=== PATIENT | male | born 1970 ===

== ENCOUNTER 2018-02-05 10:09 | Emergency (ER) | payer SELFPAY ==
[2018-02-05 10:17] VITALS: O2SAT 100
[2018-02-05] MEDS ORDERED: Sodium Chloride 0.9% 1,000 ML IV STA (11:01)
[2018-02-05 11:47] LABS: VENOUS BLOOD GAS BASE EXCESS 0.5 mmol/L (0.0-2.0); VENOUS BLOOD GAS PCO2 47 mmHg (40-60); VENOUS BLOOD GAS PO2 18 mm/Hg (30-55); VENOUS BLOOD PH 7.36 (7.32-7.43)
--- NOTE | 2018-02-05 12:10 | ED PDOC ---
HPI: General Adult History Per: Patient Additional Complaint(s): Pt. states since 01/23/2018 he developed fever, lower back pain, and R sided neck swelling. Reports fever is intermittent and resolves after taking Aleve. Further states lower back pain has improved and is now "95% resolved." R sided neck swelling became worsen. Reports no sore throat. Denies trauma, dysuria, incontinence, abd pain, IVDA, cough, congestion, hematuria, previous back problems, rash, sick contacts, recent travel, radiation of pain, numbness, tingling. Of note, back pain was only present with movement and not to touch. <Daniel Ralph E - Last Filed: 02/05/18 19:22> <Sriram Zayas Y - Last Filed: 02/08/18 08:48> Time Seen by Provider: 02/05/18 10:45 Chief Complaint (Nursing): ENT Problem Supervising Attending Note - Supervising Attending Note The Documented history was done by the: Physician Cable Weaver The documented physical exam was done by the: Physician Cable Weaver The documented procedures were done by the: Physician Cable Weaver - Attestation: I have personally seen and examined this patient.: Yes I have fully participated in the care of the patient.: Yes I have reviewed all pertinent clinical information, including history, physical exam and plan: Yes - Notes: Notes:: Pt seen by myself / pt wiht R sided swelling. no pain. normal wbc. CT shows lymph nodes, concerning for lymphoma ivc abx ordered on exam pt has no pain, trouble swelling or sob. airway intact. no labored breathing. speaking comfortably. discussed results with patient spoke with Dr Mejia ENT environmental systems coordinator who agrees with iv abx and recommends going to see Dr Mejia tomorrow at noon. info given to pt. discussed with brittaney santizo <Sriram Zayas Y - Last Filed: 02/08/18 08:48> Past Medical History Reviewed: Historical Data, Nursing Documentation, Vital Signs Vital Signs: Last Vital Signs Temp 101.5 F H 02/05/18 10:16 Pulse 115 H 02/05/18 10:16 Resp 20 02/05/18 10:16 BP 118/79 02/05/18 10:16 Pulse Ox 100 02/05/18 10:16 - Medical History PMH: Denies: Chronic Kidney Disease - Surgical History Surgical History: No Surg Hx - Family History Family History: States: No Known Family Hx - Social History Alcohol: Social Drugs: Cannabis, Other (denies IVDA) <Daniel Ralph E - Last Filed: 02/05/18 19:22> Vital Signs: Last Vital Signs Temp 99.4 F 02/05/18 22:10 Pulse 80 02/05/18 22:10 Resp 18 02/05/18 22:10 BP 126/72 02/05/18 22:10 Pulse Ox 100 02/05/18 22:10 <Sriram Zayas Y - Last Filed: 02/08/18 08:48> - Home Medications Home Medications: Ambulatory Orders Medication Instructions Recorded RX: Clindamycin [Cleocin] 300 mg PO TID #21 cap 02/05/18 - Allergies Allergies/Adverse Reactions: Allergies Allergy/AdvReac Type Severity Reaction Status Date / Time shellfish derived Allergy RASH Verified 02/05/18 16:20 Review of Systems ROS Statement: Except As Marked, All Systems Reviewed And Found Negative Constitutional: Positive for: Fever Musculoskeletal: Positive for: Back Pain <Daniel Ralph E - Last Filed: 02/05/18 19:22> Physical Exam - Physical Exam Appears: Positive for: Well, Non-toxic, No Acute Distress Skin: Positive for: Normal Color, Warm. Negative for: Rash Eye Exam: Positive for: Normal appearance ENT: Positive for: TM Is/Are (non-erythematous, non-bulging b/l), Tonsillar Exudate (Small tonsillar exudate on R vs tonsilith), Tonsillar Swelling (R sided tonsillar swelling), Other (no trismus, able to swallow saliva) Neck: Positive for: Normal, Painless ROM, Supple. Negative for: Pain On Movement Of Neck Cardiovascular/Chest: Positive for: Regular Rate, Rhythm Respiratory: Positive for: Normal Breath Sounds. Negative for: Stridor, Respiratory Distress Gastrointestinal/Abdominal: Positive for: Normal Exam, Bowel Sounds, Soft. Negative for: Tenderness, Organomegaly Back: Positive for: Normal Inspection. Negative for: L CVA Tenderness, R CVA Tenderness, Vertebral Tenderness, Decreased ROM, Muscle Spasm Neurologic/Psych: Positive for: Alert, Oriented (x3) <Daniel Ralph E - Last Filed: 02/05/18 19:22> - Laboratory Results Result Diagrams: 02/05/18 11:50 02/05/18 11:50 - ECG O2 Sat by Pulse Oximetry: 100 - Progress ED Course And Treament: Labs, Tylenol 975mg PO, IV NS bolus x 1 ordered. Pt. evaluated by Dr. Zayas who agrees with plan and recommends CT soft tissue neck. CT soft tissue neck w/ IV contrast ordered. 1515 CT soft tissue neck: There are 3 large contiguous masses located in the right parotid gland. These are best demonstrated on sagittal image 33 series 602. These lesions measure 12, 15 and 21 mm in diameter. The 15 mm lesion shows an area of central necrosis. In addition there are multiple enlarged lymph nodes in the right cervical chain some of which show a necrotic center. There is also moderate amount of edema in the subcutaneous fat planes on the right side of the neck. Findings most likely represent reactive adenopathy to an underlying infection. Neoplastic adenopathy such as lymphoma cannot be excluded. Resutls d/w Dr. Zayas who recommends ENT evaluation. Dr. Zayas discussed case with Dr. Mejia, ENT, who viewed CT images and recommends rapid HIV, unasyn, and monospot. Also requests that pt. f/u in his office at 12pm tomorrow and for pt. to be prescribed Augmentin. Pt. informed of results and plan. Agrees and also verbalized understanding of necessary f/u tomorrow with Dr. Mejia. Unasyn, monospot, rapid HIV ordered. Reports that he gets HIV testing q4-5 months. Pt. states he does participate in anal intercourse. Monospot: reactive Rapid HIV: non-reactive Results d/w Dr. Mejia who recommends changing Augmentin to Clindamycin instead. Requests pt. be given Clindamycin 600mg IV, decadron 10mg IV and to be prescribed clindamycin 300mg TID x 10 days. Pt. is still f/u in his office as previously planned. Pt. informed of plan and advised to avoid physical activity until cleared. <Daniel Ralph E - Last Filed: 02/05/18 19:22> - Laboratory Results Result Diagrams: 02/05/18 11:50 02/05/18 11:50 <Sriram Zayas Y - Last Filed: 02/08/18 08:48> Disposition - Patient ED Disposition Is Patient to be Admitted: No - Disposition Disposition: Routine/Home Disposition Time: 18:00 <Daniel Ralph - Last Filed: 02/05/18 19:22> <Sriram Zayas - Last Filed: 02/08/18 08:48> - Clinical Impression Clinical Impression: Infectious mononucleosis, Lymphadenopathy - Disposition Referrals: Sherman Mejia MD [Staff Provider] - [facility] [Outside] Condition: IMPROVED Additional Instructions: FOLLOW UP WITH DR. ISHAN MEJIA TOMORROW AT 12PM TOMORROW WITHOUT FAIL [address] [place] [address] AVOID PHYSICAL ACTIVITY UNTIL CLEARED ROBERTA CARLOS, thank you for letting us take care of you today. Your provider was Sriram Zayas MD and you were treated for LUMP ON SIDE OF NECK. The [facility] medical care you received today was directed at your acute symptoms. If you were prescribed any medication, please fill it and take as directed. It may take several days for your symptoms to resolve. Return to the Emergency Department if your symptoms worsen, do not improve, or if you have any other problems. Please contact your doctor or call one of the physicians/clinics you have been referred to that are listed on the Patient Visit Information form that is included in your discharge packet. Bring any paperwork you were given at discharge with you along with any medications you are taking to your follow up visit. Our treatment cannot replace ongoing medical care by a primary care provider outside of the emergency department. Thank you for allowing the [facility] team to be part of your care today. If you had an X-Ray or CT scan: A Radiologist will review the ED reading if any change in treatment is needed we will contact you. If you had a blood, urine, or wound culture: It will take several days for the results, if any change in treatment is needed we will contact you. If you had an STI test: It will take 48 hours for the results. Please call after 1 week if you have not heard back. Prescriptions: RX: Clindamycin [Cleocin] 300 mg PO TID #21 cap Instructions: Mononucleosis (DC) Forms: [employer] (Icelandic) Print Language: HUNGARIAN
[2018-02-05 12:12] LABS: ALB/GLOB RATIO 0.9 (1.0-2.1); ALBUMIN 4.6 g/dL (3.5-5.0); ALT/SGPT 186 U/L (21-72); AST/SGOT 79 U/L (17-59); BLOOD UREA NITROGEN 16 mg/dl (9-20); CALCIUM 10.3 mg/dL (8.4-10.2); GFR NON-AFRICAN AMERICAN > 60
[2018-02-05 12:13] LABS: BASO % 0.5 % (0.0-2.0); EOS % 0.5 % (0.0-4.0); HEMOGLOBIN 13.5 g/dL (12.0-18.0); LYMPH # 1.3 K/uL (1.0-4.3); MEAN CELL VOLUME 93.1 fl (80.0-94.0); MEAN CORPUSCULAR HEMOGLOBIN 30.6 pg (27.0-31.0); MEAN CORPUSCULAR HGB CONC 32.9 g/dL (33.0-37.0); MEAN PLATELET VOLUME 9.8 fl (7.2-11.7); MONO # 0.6 K/uL (0.0-0.8); MONO % 8.1 % (0.0-10.0); NEUT # 5.8 K/uL (1.8-7.0); NEUT % 73.9 % (50.0-75.0); RBC 4.42 Mil/uL (4.40-5.90); RED CELL DISTRIBUTION WIDTH 12.7 % (11.5-14.5); WHITE BLOOD COUNT 7.8 K/uL (4.8-10.8)
[2018-02-05] MEDS ORDERED: Iohexol 300 100 ML IJ ONE (12:23)
[2018-02-05] MEDS ORDERED: Sodium Chloride 0.9% 50 ML IV ONE (12:24)
[2018-02-05 12:44] LABS: URINE BILIRUBIN NEGATIVE (NEGATIVE); URINE BLOOD NEGATIVE (NEGATIVE); URINE CLARITY CLEAR (Clear); URINE COLOR YELLOW (YELLOW); URINE GLUCOSE (UA) NEG (Normal); URINE LEUKOCYTE ESTERASE NEG Leu/uL (Negative); URINE PROTEIN NEGATIVE (NEGATIVE); URINE UROBILINOGEN 0.2-1.0 mg/dL (0.2-1.0)
[2018-02-05 13:27] LABS: BARBITURATES, UR NEGATIVE (NEGATIVE); BENZODIAZEPINES, UR NEGATIVE (NEGATIVE); OPIATES, UR NEGATIVE (NEGATIVE); PHENCYCLIDINE, UR NEGATIVE (NEGATIVE)
--- NOTE | 2018-02-05 15:07 | CT ---
Date of service: 02/05/2018 PROCEDURE: CT NECK WITH CONTRAST HISTORY: R sided neck swelling COMPARISON: None available. TECHNIQUE: CT of the neck with intravenous contrast. Coronal and sagittal reformats generated. Intravenous contrast dose: 95 cc of Omni 300 Radiation dose: Total exam DLP = 334.65 mGy-cm. This CT exam was performed using one or more of the following dose reduction techniques: Automated exposure control, adjustment of the mA and/or kV according to patient size, and/or use of iterative reconstruction technique. FINDINGS: NASOPHARYNX: Unremarkable. SUPRAHYOID NECK: There is mild tonsillar swelling. There is also swelling of the lingular tonsils INFRAHYOID NECK: Unremarkable larynx, hypopharynx, and supraglottic space. Vocal cords intact. MASS: See below GLANDS: Normal size thyroid gland, without nodule. There is mild dilatation of the submandibular ducts bilaterally. Significance uncertain. LYMPH NODES: There are 3 large contiguous masses located in the right parotid gland. These are best demonstrated on sagittal image 33 series 602. These lesions measure 12, 15 and 21 mm in diameter. The 15 mm lesion shows an area of central necrosis. In addition there are multiple enlarged lymph nodes in the right cervical chain some of which show a necrotic center. There is also moderate amount of edema in the subcutaneous fat planes on the right side of the neck. Findings most likely represent reactive adenopathy to an underlying infection. Neoplastic adenopathy such as lymphoma cannot be excluded.. CERVICAL SPINE: No fracture or focal lesion. VASCULAR STRUCTURES: Unremarkable. OTHER FINDINGS: None. IMPRESSION: Right-sided intra parotid and cervical adenopathy. See comments
[2018-02-05 17:42] VITALS: RESP 18
[2018-02-05] MEDS ORDERED: Clindamycin 600mg/50ml D5W 600 MG/50 ML VIAL IVPB STA (18:14)
[2018-02-05] MEDS ORDERED: Dexamethasone 10 MG in Sodium Chloride 0.9% 50 ML IV ONE (18:14)
[2018-02-06 00:55] VITALS: BP 126/72; PULSE 80; TEMP 99.4
== END 2018-02-05 22:10 | disposition home or self-care (01) ==
LOC: H.ER 10:09
DX: B27.90 Infectious mononucleosis, unspecified without complication (principal); R59.9 Enlarged lymph nodes, unspecified
CPT/HCPCS: 70491; 80053; 81003; 82803; 85025; 86308; 86664; 86665; 87040; 87070; 87390; 87430; 87804; 96361; 96365; 96375; 99284; G0480; J0295; J1100; J7030; Q9967